=== PATIENT | female | born 1935 | race Caucasian/White ===

== ENCOUNTER 2016-10-24 05:33 | Emergency (ER) | payer MEDICARE ==
[~2016-10-24] VITALS: Ht 160 cm; Wt 90.7 kg
[~2016-10-24 05:33] MED LIST: ASPI-COR81 M1 PO; ENTERIC ASPIRI325 MG PO; HYDROCHLOROTHIA25 M1 PO; LEVOTHYROXIN0.075 M1 PO; LOSARTAN POTAS100 MG PO; METFORMIN500 MG PO; METOPROLOL SUCC50 M1 PO; NITROGLYCERIN0.4 M1 SL; PAXIL20 MG PO; PAXIL40 MG PO; PLAVIX 75MG TAB75 MG PO
[2016-10-24] MEDS ORDERED: ROSUVASTATIN CA10 MG PO (05:53)
[2016-10-24] MEDS ORDERED: GABAPENTIN 100100 MG PO (05:54)
[2016-10-24] MEDS ORDERED: ETODOLAC400 MG PO (05:55)
[2016-10-24 06:04] LABS: URINE BLOOD 1+ (NEG)
[2016-10-24 06:05] LABS: LYMPH # 1.1 K/mm3 (0.7-4.5); LYMPH % 11.8 % (10-50.0)
[2016-10-24 06:14] LABS: URINE BILIRUBIN - DIPSTICK NEGATIVE (NEG); URINE SQUAMOUS CELLS OCC #/hpf (0-5)
[2016-10-24 06:15] LABS: HEMOGLOBIN 12.6 g/dL (12.2-16.2)
[2016-10-24 06:31] LABS: BUN 12 mg/dL (7-18); GFR (ESTIMATED) 69 ML/MIN (59-)
--- NOTE | 2016-10-24 07:02 | Emergency Room Report ---
See Addendum History of Present Illness Time Seen by MD Rodriguez Presenting Problem in Triage Pt arrived:Wheelchair Presenting Problem:C/O SHORTNESS OF BREATH, ABD PAIN, FREQUENT URINATION, RESP EVEN AND UNLABORED, DIMINISHED BREATH SOUND. 02 SAT 90 . 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 N Clinical Suspician of Infection? N Mental Status: 1 - Regular (Normal Baseline) Sepsis Risk:Low Sepsis Risk Have you (or family members/close friends) recently traveled outside the [place]? N If Yes, where/when: Have you had exposure to infectious disease within the past month? N TB? Other? Specify: Source patient, RN notes reviewed, family, old records Exam Limitations no limitations Comment pt with couple of issues which include episodes of elevated bp and feeling sob w /o chest pain -pt with no fever or rash and no cough Cardiac Chest Pain Chest pain indicative of cardiac No Timing/Duration this morning Severity moderate ALLERGIES Coded Allergies: No Known Allergies (10/24/16) Home Medications Active Scripts Nitroglycerin 0.4 MG SL [id number] PRN CHEST PAIN #15 TAB Ref 2 Prov: 10/16/13 Reported Medications HYDROCHLOROTHIAZIDE (Hydrochlorothiazide) 25 MG PO DAILY Losartan Potassium (Losartan 100MG) 100 MG PO DAILY Levothyroxine Sodium (Levothyroxine 0.075MG) 0.075 MG PO DAILY Metformin HCL (Metformin) 500 MG PO BID Paroxetine (Paxil) 40 MG PO DAILY Metoprolol Succinate Xl (Metoprolol ER 50MG) 25 MG PO BID Rosuvastatin Calcium 10 MG PO DAILY GABAPENTIN (Gabapentin 100MG Capsule) 100 MG PO DAILY Etodolac 400 MG PO DAILY History Medical History General CAD? No Angina: Yes CA: No Hypertension? Yes Hyperlipidemia? Yes CHF? No DVT? No PE? No COPD? No Asthma? No Anemia? No GERD? No Gastric ulcers? No GI Bleed? No Hernia? Yes Thyroid Problems? Yes Hypothyroidism? Yes CVA? No Seizures? No Diabetes? Yes Insulin Dependent: No Insulin Pump: No Home FSBS? No Renal Insuffiency? No End Stage Renal Disease? No UTI? No Stones? No BPH? No GB Disease: Yes Nephritic Syndrome? No Asplenia? No Hepatitis? No Sickle Cell Disease? No Arthritis? Yes Migraines? No Cataracts? Yes Glaucoma? No MRSA? No HIV? No TB? No Anxiety? Yes Depression? Yes Cancer? No More? No Immunization Hx DT/Tetanus > 10 Years Ago Flu FSN Pneumonia 10/16/13 Surgical Hx Previous Surgery?Y GALLBLADDER REMOVEAL HYSTERECTOMY ORAL SURGERY HEART CATH Family History Family Hx Diabetes No CAD Yes Hypertension Yes Hyperlipidemia No Cancer Yes TB Yes Social History Smoking Hx Smoker: Never Smoker Tobacco: No Alcohol Alcohol: No Drugs none Review of Systems All Other Systems Reviewed and Negative Constitutional see HPI, denies fever, other Eyes denies drainage ENT denies: ear pain, epistaxis, throat pain. Respiratory denies cough, shortness of breath, denies wheezing Cardiovascular denies chest pain, denies palpitations, denies syncope Gastrointestinal denies abdominal pain, denies diarrhea, denies vomiting Genitourinary denies: dysuria, frequency, hesitancy, hematuria. Musculoskeletal denies back pain, denies joint pain, denies joint swelling, denies neck pain Skin denies rash Psychiatric/Neurological denies headache, denies seizure Physical Exam Vital Signs Vital Signs Date Time Temp Pulse Resp B/P Pulse O2 O2 Flow FiO2 Ox Delivery Rate 10/24 0717 67 20 189/85 92 10/24 0641 69 20 187/87 92 10/24 0535 98.6 80 20 159/95 90 - WBC >12,000 or <4,000 or 10% bands? 2 or more SIRS Criteria Met? B/P:189/85 MAP:116 Creatinine >2.0? UA output<0.5ml/kg/hr for 2 hrs? Platelet count >100,000? Lactate >2.0mmol/1? INR >1.2 or PTT > than 60 sec? Evidence of Organ Dysfunction? Provider documented clinical suspician of infection? N Sepsis Criteria Count: 1 Sepsis Risk: Low Sepsis Risk General Appearance no apparent distress Eye Exam - bilateral eye PERRL, bilateral eye EOMI Ear, Nose, Throat normal ENT inspection Neck non-tender, no jvd Respiratory Status No: respiratory distress. Lung Sounds bilateral: decreased breath sounds. 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 No Results/Orders Laboratory Tests 10/24/16 0550: Sodium 140, Potassium 3.6, Chloride 102, Carbon Dioxide 32, BUN 12, Creatinine 0.8, Estimated Creat Clear 79, Estimated GFR (MDRD) 69, Glucose 148 H, Calcium 9.1, Total Bilirubin 0.7, AST 18, ALT 16, Alkaline Phosphatase 100, Creatine Kinase 60, CK-MB (CK-2) Rel Index 9.5 *H, CK and CKMB Interp 5.7 H, Troponin I < 0.02, Total Protein 8.1, Albumin 3.6, Globulin 4.5 H, Albumin/Globulin Ratio 0.8 L, Amylase 63, Lipase 188, WBC 9.0, RBC 4.17 L, Hgb 12.6, Hct 38.6, MCV 92.4, RDW 14.3, Plt Count 170, MPV 6.8 L, Gran % 79.0, Gran # 7.1, Lymphocytes % 11.8, Monocytes % 7.2, Eosinophils % 1.7, Basophils % 0.2, Lymphocytes # 1.1, Monocytes # 0.7, Eosinophils # 0.2, Basophils # 0.0, PUBS MCHC 32.4, MCH 29.9 10/24/16 0541: Urine Color YELLOW, Urine Appearance SL CLOUDY, Urine pH 7.0, Ur Specific [place] 1.020, Urine Protein TRACE H, Urine Ketones NEGATIVE, Urine Blood 1+ H , Urine Nitrate NEGATIVE, Urine Bilirubin NEGATIVE, Urine Urobilinogen 0.2, Ur Leukocyte Esterase 1+ H, Urine RBC 3-5, Urine WBC 20-50, Ur Squamous Epith Cells OCC, Urine Bacteria 3+, Urine Glucose NEGATIVE Orders Procedure Date/time Status DIET-NOTHING BY MOUTH 10/24 B Active ELECTROCARDIOGRAM REQUEST 10/[address] ABD/PELVIS REQ 10/24 558 Complete IV SALINE LOCK 10/24 558 Active 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 10/24 558 Active URINALYSIS/COMPLETE 10/24 558 Complete LIPASE 10/24 558 Complete CBC WITH AUTO DIFF 10/24 558 Complete CARDIAC ENZYMES 10/24 558 Complete CHEM 12 PROFILE 10/24 558 Complete AMYLASE 10/24 558 Complete CULTURE, URINE 10/24 540 Active XRAY/CT/US XRAY/CT/US 1 XRAY chest XR interpretation by reviewed by me Xray Results normal/NAD XRAY/CT/US 2 CT abdomen, pelvis CT interpretation by discussed w/radiologist Time results known: 721 CT Results abnormal (see report) Departure Departure Time of Disposition 715 Disposition DC Home or Self Care(routine) Clinical Impression Primary Impression: UTI (urinary tract infection) Qualifiers: Urinary tract infection type: acute cystitis Hematuria presence: without hematuria Qualified Code: N30.00 - Acute cystitis without hematuria Secondary Impressions: Hypertension Qualifiers: Hypertension type: essential hypertension Qualified Code: I10 - Essential (primary) hypertension Condition STABLE Referrals LAVERNE AGRZA APRN (Family) Patient Instructions DI for Urinary Tract Infection (UTI) Additional Instructions use meds and see pcp about bp sharif Discharge Counseling Counseled pt/family regarding diagnosis, test results, medications/RX, follow up needs Prescriptions Current Visit Scripts Ciprofloxacin HCl (Cipro 500MG TAB) 500 MG PO BID #14 TAB ED Critical Care Critical Care No at 0723
--- NOTE | 2016-10-24 07:11 | RADIOLOGY REPORT PS360 ---
CT ABD PELVIS W/O CONTRAST CLINICAL INDICATION: Mid abdominal pain C/O ABD PAIN ORDERING PHYSICIAN: Nell Hernandez MD PATIENT AGE: 81 years COMPARISON: None TECHNIQUE: Axial images obtained with sagittal and coronal reformats. PROCEDURE: Oral Contrast: None IV Contrast: None . FINDINGS: Lower thorax: Small bilateral pleural effusions. 5 mm right lower lobe nodular opacity ABDOMEN: Liver: No masses or biliary dilatation. Gallbladder: Post cholecystectomy. No biliary dilatation Pancreas: No masses or peripancreatic fluid collections. Spleen: Unremarkable. Adrenals: Unremarkable Kidneys/ureters: 4 cm upper pole cortical cyst on the right. No obstructing renal or ureteral calculi. No hydronephrosis. Stomach bowel: Castellanos colonic diverticulosis most severe in the sigmoid region. No evidence of diverticulitis. Abdominal wall: Medium-sized ventral abdominal wall hernia containing fat 13 cm superior to the umbilicus Appendix: No evidence of appendicitis. PELVIS: Reproductive: Hysterectomy Bladder: Nondistended. No obvious stones or masses. ABDOMEN & PELVIS: Peritoneum: No abnormal fluid collections. No obvious inflammatory changes. No free air. Lymph nodes: No enlarged lymph nodes apparent. Vasculature: No evidence of abdominal aortic aneurysm. No retroperitoneal hemorrhage evident. Bones: No acute fracture IMPRESSION: 1. No acute intra-abdominal or pelvic pathology. 2. Small bilateral pleural effusions with 5 mm right lower lobe nodule. Six-month follow-up recommended. 3. Diverticulosis without diverticulitis. 4. Medium-sized ventral abdominal wall hernia containing fat
--- NOTE | 2016-10-24 07:13 | RADIOLOGY REPORT PS360 ---
CHEST(2 VIEWS-NOT PORTABLE) HISTORY: C/O SHORTNESS OF BREATH ORDERING PHYSICIAN: Nell Hernandez MD PATIENT AGE: 81 years COMPARISON: None available FINDINGS: The cardiomediastinal silhouette and pulmonary vascularity are within normal limits. There is evidence of old granulomatous disease. There are small bilateral pleural effusions. No lobar consolidation or collapse No acute bony abnormalities. IMPRESSION: Small bilateral pleural effusions with old granulomatous disease
[2016-10-24] MEDS ORDERED: CIPRO 500MG TA500 MG PO (07:23)
[2016-10-24 07:33] VITALS: BP 176/78
--- OUTSIDE RECORDS SUMMARY | 2016-10-31 02:07 | External Medical Summary Rpt ---
Demographics Preferred Language Czech Marital Status Unknown Adventism Affiliation Unknown Race Unknown Ethnic Group Unknown Author Author , Organization [employer] Address Unknown Phone Unavailable Purpose Continuity of Care Document - through 2016 Immunization No patient found.
--- OUTSIDE RECORDS SUMMARY | 2016-10-31 02:07 | External Medical Summary Rpt ---
Author Author [employer] Organization [employer] Address Unknown Phone Unavailable Purpose Continuity of Care Document - through 2016
--- OUTSIDE RECORDS SUMMARY | 2016-10-31 02:07 | External Medical Summary Rpt ---
Author Author , Organization [employer] Address Unknown Phone Unavailable Purpose Continuity of Care Document - through 2016 Problems Code Diagnosis DOS Provider Status I10 ESSENTIAL (PRIMARY) HYPERTENSIO N N39.0 URINARY TRACT INFECTION, SITE NOT SPECIFIED
--- OUTSIDE RECORDS SUMMARY | 2016-10-31 02:07 | External Medical Summary Rpt ---
Demographics Preferred Language Thai Marital Status Unknown Zoroastrianism Affiliation Unknown Race Unknown Ethnic Group Unknown Author Author , Organization [employer] Address Unknown Phone Unavailable Purpose Continuity of Care Document - through 2016 Immunization No patient found.
== END 2016-10-24 07:35 | disposition home or self-care (01) ==
LOC: ER 05:33
PROVIDERS: Emergency Medicine
DX: N30.00 Acute cystitis without hematuria (principal); I10 Essential (primary) hypertension; E11.9 Type 2 diabetes mellitus without complications; M79.7 Fibromyalgia

== ENCOUNTER → 2017-04-20 | Outpatient (CLI) | payer MEDICARE ==
[~2017-04-20] MED LIST changes: +CIPRO 500MG TA500 MG PO; +ETODOLAC400 MG PO; +GABAPENTIN 100100 MG PO; +ROSUVASTATIN CA10 MG PO
--- NOTE | 2017-04-21 19:51 | RADIOLOGY REPORT PS360 ---
KNEE-3 VIEWS-RT HISTORY: RT KNEE PAIN Patient Age: 81 years: Female Ordering Physician: LAVERNE GARZA APRN TECHNIQUE: 3 view right knee COMPARISON :None None FINDINGS Arthritic changes are seen at the right knee with prominent narrowing of the medial compartment on this nonweightbearing film. There [id number] appearance at medial compartment with mild sclerosis medial tibial plateau. There is also mild sclerosis and likely some early osteochondral irregularity seen at the medial femoral condyle towards notch, best appreciated on the oblique view.. Tricompartmental osteophytes with most Generous marginal osteophytes at medial margin margin of the medial femoral condyle.. There is some narrowing of the patellofemoral joint with [id number] marginal osteophytes about the margins of patella. No joint effusion.. Likely some mild diffuse demineralization. IMPRESSION Degenerative arthritic changes right knee.- Pronounced joint space narrowing narrowing & degenerative changes most evident at medial compartment; followed by the patellofemoral joint.
--- NOTE | 2017-04-21 19:51 | RADIOLOGY REPORT PS360 ---
KNEE-3 VIEWS-RT HISTORY: RT KNEE PAIN Patient Age: 81 years: Female Ordering Physician: LAVERNE GARZA APRN TECHNIQUE: 3 view right knee COMPARISON :None None FINDINGS Arthritic changes are seen at the right knee with prominent narrowing of the medial compartment on this nonweightbearing film. There [id number] appearance at medial compartment with mild sclerosis medial tibial plateau. There is also mild sclerosis and likely some early osteochondral irregularity seen at the medial femoral condyle towards notch, best appreciated on the oblique view.. Tricompartmental osteophytes with most Generous marginal osteophytes at medial margin margin of the medial femoral condyle.. There is some narrowing of the patellofemoral joint with [id number] marginal osteophytes about the margins of patella. No joint effusion.. Likely some mild diffuse demineralization. IMPRESSION Degenerative arthritic changes right knee.- Pronounced joint space narrowing narrowing & degenerative changes most evident at medial compartment; followed by the patellofemoral joint.
== END ==
LOC: RAD 12:11
DX: M25.561 Pain in right knee (principal)